=== PATIENT | male | born 1990 | race Caucasian/White ===

== ENCOUNTER → 2016-12-15 | Outpatient (CLI) | payer OTHER ==
[~2016-12-15] MED LIST: BISA10SU7 RE; BISA1TAB15 PO; BISM262T3 PO; CALC500C50 PO; CHOL100027 PO; CLON1TAB3 PO; DIVA1CAP PO; DOCU100C41 PO; FAMO20TA11 PO; IBUP1CAP9 PO; LEVE250T PO; LEVO75TA PO; MISCCAP80; MRLP17 PO; PANT1TAB48 PO; RISP2TAB21 PO; SENN-65 PO; SERT25TA PO; SIME80CH PO; TIZA2CAP PO; TIZA4CAP PO; [UNRECOGNIZED DRUG - CODE] PO; [UNRECOGNIZED DRUG - CODE] PR; [UNRECOGNIZED DRUG - OTHER] PO
--- NOTE | 2016-12-15 12:49 | DIAGNOSTIC IMAGING REPORT ---
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 There is no evidence of focal pulmonary consolidation. There is no evidence of failure. No pleural effusions are visualized.[ IMPRESSION: No active disease in the chest. Electronically signed by: Everton Hoff M.D. 12/15/2016 12:46 PM Dictated Date/Time: 12/15/2016 12:46 PM
[2016-12-15 13:00] LABS: MEAN CORPUSCULAR HGB CONC 33.1 g/dl (32-36)
[2016-12-15 13:21] LABS: HEMATOCRIT 37.2 % (42-52); MEAN CELL VOLUME 62.1 fL (80-100); MEAN CORPUSCULAR HEMOGLOBIN 20.5 pg (25-34); RED BLOOD COUNT 5.99 M/uL (4.7-6.1); WHITE BLOOD COUNT 14.59 K/uL (4.8-10.8)
[2016-12-15 13:22] LABS: ALT/SGPT 12 U/L (12-78); BLOOD UREA NITROGEN 26 mg/dl (7-18); BUN/CREATININE RATIO 38.6 (10-20); CALCIUM 9.8 mg/dl (8.5-10.1); CARBON DIOXIDE 22 mmol/L (21-32); CHLORIDE 110 mmol/L (98-107); CREATININE 0.66 mg/dl (0.60-1.40); GLUCOSE 93 mg/dl (70-99); POTASSIUM 4.2 mmol/L (3.5-5.1); SODIUM 143 mmol/L (136-145)
[2016-12-15 13:23] LABS: BASO % 0.1 %; BASO ABS # 0.01 K/uL (0-0.2); COMPLETE YES; EOS % 0.1 %; IG% 0.3 %; LYMPH % 7.4 %; LYMPH ABS # 1.08 K/uL (1.2-3.4); MICROCYTOSIS PRESENT; MONO % 9.3 %; NEUT % 82.8 %; PLATELET COUNT 123 K/uL (130-400); PLT ESTIMATE DECREASED; POLYCHROMASIA 1+
[2016-12-15 13:33] LABS: ALB/GLOB RATIO 1.1 (0.9-2); ALKALINE PHOSPHATASE 49 U/L (45-117); AST/SGOT 8 U/L (15-37); THYROID STIMULATING HORMONE 0.251 uIu/ml (0.300-4.500)
[2016-12-15 15:14] LABS: INFLUENZA A PCR Neg for Influ A (NEG); INFLUENZA B PCR Neg for Influ B (NEG)
== END | disposition home or self-care (01) ==
LOC: C.RAD1850 11:50
PROVIDERS: ATTEND Family Medicine
DX: G80.8 Other cerebral palsy (principal); G80.9 Cerebral palsy, unspecified; R50.9 Fever, unspecified; G40.909 Epilepsy, unspecified, not intractable, without status epilepticus; Z51.81 Encounter for therapeutic drug level monitoring; Z79.899 Other long term (current) drug therapy

== ENCOUNTER → 2017-02-13 | Outpatient (CLI) | payer OTHER ==
--- NOTE | 2017-02-13 12:43 | DIAGNOSTIC IMAGING REPORT ---
RIGHT HIP 2 VIEWS CLINICAL HISTORY: Right hip pain. FINDINGS: AP and frog-leg views of the right hip are obtained. No prior studies are available for comparison at the time of dictation. The skeletal structures are osteopenic. No acute fracture is seen. There is advanced chronic deformity of the right hip. The right femoral head and neck are absent. There is superior subluxation of the right femoral shaft, with a shallow acetabulum and a pseudoarticulation with the right bony pelvis. Bony overgrowth is noted from the intertrochanteric femur. There is chronic deformity of the bony pelvis. The overlying soft tissues are within normal limits. IMPRESSION: 1. No fracture is identified. 2. 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 Electronically signed by: Eric Dong M.D. 02/13/2017 12:42 PM Dictated Date/Time: 02/13/2017 12:39 PM
--- NOTE | 2017-02-13 12:51 | DIAGNOSTIC IMAGING REPORT ---
LEFT HIP UNILATERAL 2 VIEWS CLINICAL HISTORY: Left hip pain. COMPARISON STUDY: There is chronic deformity/destruction of the proximal left femur are likely on a developmental basis. There is a shallow acetabulum. No acute fracture or dislocation within the left hip. Small amount of heterotopic ossification at the left hip. No fractures within the visualized pelvic bones. Soft tissues unremarkable. FINDINGS: IMPRESSION: Chronic deformity/destructive changes involving the proximal left femur likely on a developmental basis. No acute fracture or dislocation within the left hip. Electronically signed by: Tirso Barlow M.D. 02/13/2017 12:50 PM Dictated Date/Time: 02/13/2017 12:45 PM
== END | disposition home or self-care (01) ==
LOC: C.RADBC 12:03
PROVIDERS: ATTEND Internal Medicine
DX: M25.551 Pain in right hip (principal); M25.552 Pain in left hip; M85.851 Other specified disorders of bone density and structure, right thigh; M21.951 Unspecified acquired deformity of right thigh; M21.952 Unspecified acquired deformity of left thigh

== ENCOUNTER → 2017-08-21 | Outpatient (CLI) | payer OTHER ==
[2017-08-21 15:07] LABS: BASO % 0.2 %; BASO ABS # 0.01 K/uL (0-0.2); EOS % 1.1 %; HEMATOCRIT 38.5 % (42-52); IG% 0.6 %; LYMPH % 31.7 %; LYMPH ABS # 1.51 K/uL (1.2-3.4); MEAN CELL VOLUME 62.9 fL (80-100); MEAN CORPUSCULAR HEMOGLOBIN 20.4 pg (25-34); MEAN CORPUSCULAR HGB CONC 32.5 g/dl (32-36); MONO % 10.3 %; NEUT % 56.1 %; PLATELET COUNT 158 K/uL (130-400); RED BLOOD COUNT 6.12 M/uL (4.7-6.1); WHITE BLOOD COUNT 4.76 K/uL (4.8-10.8)
[2017-08-21 15:39] LABS: ALT/SGPT 13 U/L (12-78); AST/SGOT 7 U/L (15-37); BLOOD UREA NITROGEN 29 mg/dl (7-18); BUN/CREATININE RATIO 37.7 (10-20); CALCIUM 9.2 mg/dl (8.5-10.1); CARBON DIOXIDE 26 mmol/L (21-32); CHLORIDE 110 mmol/L (98-107); CREATININE 0.78 mg/dl (0.60-1.40); GLUCOSE 81 mg/dl (70-99); SODIUM 143 mmol/L (136-145)
[2017-08-21 15:49] LABS: COMPLETE YES; MICROCYTOSIS PRESENT
[2017-08-21 15:50] LABS: ALB/GLOB RATIO 1.2 (0.9-2); ALKALINE PHOSPHATASE 62 U/L (45-117)
== END | disposition home or self-care (01) ==
LOC: C.LAB1850 14:25
PROVIDERS: ATTEND Psychiatry & Neurology Neurology
DX: G40.909 Epilepsy, unspecified, not intractable, without status epilepticus (principal); F41.9 Anxiety disorder, unspecified

== ENCOUNTER → 2018-02-22 | Outpatient (CLI) | payer OTHER ==
[~2018-02-22] MED LIST changes: -DIVA1CAP PO; +DIVA1CAP5 PO; +PANT1TAB3 PO; -PANT1TAB48 PO
[2018-02-22 16:42] LABS: HEMOGLOBIN 12.2 g/dL (14.0-18.0); MEAN CELL VOLUME 62.5 fL (80-100); MEAN CORPUSCULAR HEMOGLOBIN 19.6 pg (25-34); MEAN CORPUSCULAR HGB CONC 31.3 g/dl (32-36); PLATELET COUNT 188 K/uL (130-400); RED CELL DISTRIBUTION WIDTH CV 15.2 % (11.5-14.5); RED CELL DISTRIBUTION WIDTH SD 34.1 fL (36.4-46.3); WHITE BLOOD COUNT 8.81 K/uL (4.8-10.8)
[2018-02-22 16:57] LABS: ALBUMIN 3.3 gm/dl (3.4-5.0); ALT/SGPT 14 U/L (12-78); BLOOD UREA NITROGEN 30 mg/dl (7-18); CALCIUM 9.4 mg/dl (8.5-10.1); CARBON DIOXIDE 27 mmol/L (21-32); CREATININE 0.76 mg/dl (0.60-1.40); GLUCOSE 69 mg/dl (70-99); SODIUM 141 mmol/L (136-145)
[2018-02-22 17:07] LABS: ALKALINE PHOSPHATASE 61 U/L (45-117); AST/SGOT 14 U/L (15-37); TOTAL PROTEIN 6.2 gm/dl (6.4-8.2)
== END | disposition home or self-care (01) ==
LOC: C.LABPBG 13:03
PROVIDERS: ATTEND Psychiatry & Neurology Neurology
DX: G80.8 Other cerebral palsy (principal); G40.909 Epilepsy, unspecified, not intractable, without status epilepticus